=== PATIENT | female | born 1955 | race Two or more races ===

== ENCOUNTER 2025-01-04 09:55 | Emergency (ER) | payer OTHER, MEDICAID ==
[~2025-01-04] VITALS: Ht 160 cm; Wt 63.7 kg
--- NOTE | 2025-01-04 10:59 | ED.PDOC ---
History of Present Illness HPI Comments This is a 69-year-old female who comes in with chronic low back pain and sciatica. States she has had exacerbations for years last one was about three months ago. He normally she gets a Toradol shot and it makes a big difference. She tried gabapentin years ago but states it did not help so she stopped it. Denies any falls denies any incontinence any numbness or tingling but states pain is what is most unbearable. No urinary symptoms; Chief Complaint: Back Pain Time Seen by MD: 10:56 Reviewed Notes: Nurses Notes, Medications Allergies: Coded Allergies: NO KNOWN ALLERGIES (Unverified , 01/04/25) Information Source: Patient Mode of Arrival: Ambulatory Past Medical History PAST MEDICAL HISTORY: Denies Past Medical History (Other): Chronic low back pain Surgical History: Denies all surgeries Social History Smoker: Non-Smoker Alcohol: Denies ETOH Use Drugs: Denies Drug Use Lives In: Home Musculoskeletal: reports: back pain All Other Systems: Reviewed and Negative Physical Exam General Appearance: No Apparent Distress, Normal, Thin HEENT: Normal ENT Inspection, PERRL/EOMI, TMs Normal Neck: Non-Tender, Normal, Normal Inspection, Supple Respiratory: Inspiration, Lungs Clear, None, No Respiratory Distress, Normal Breath Sounds Cardiovascular: Regular Rate/Rhythm Breast Exam: Deferred Gastrointestinal: Non Tender, Normal Bowel Sounds, Soft Genitalia: Deferred Pelvic: Deferred Rectal: Deferred Extremities: Normal inspection, Normal range of motion, Other (Pain lumbar paraspinal muscles, with radiation to the right leg, gait is steady) Neurologic: Alert, Normal Affect, Normal Mood Cerebellar Function: NOT DONE Reflexes: Normal Skin: Dry, Warm Lymphatic: No Adenopathy Was a procedure done? Was a procedure done?: No Differential Dx Considerations may include: Shingles versus lumbar strain versus UTI X-Ray, Labs, Meds, VS Vital Signs Date Time Temp Pulse Resp B/P (MAP) Pulse Ox O2 Delivery O2 Flow Rate FiO2 01/04/25 09:57 97.8 82 16 163/80 97 97.8 Current Medications Medications (Trade) Dose Ordered Sig/Kirill Route Start Time Stop Time Status Last Admin Ketorolac Tromethamine (Toradol Injection) 60 mg ONCE ONCE IM 01/04/25 11:00 01/04/25 11:02 DC 01/04/25 11:23 X-Ray, Labs, Meds, VS Comment Patient seen and examined by me. Patient has a longstanding history of chronic low back pain and sciatica. She has tried gabapentin before without any success she usually comes in for a Toradol shot. She will be given Toradol 60 mg here.. Patient had improvement in symptoms with her Toradol shot. She will be sent home with some anti-inflammatories and a muscle relaxer. Instructed to follow up with her regular doctor regarding her chronic pain as well as alternate heat and ice which might help. Time of 1ST Reevaluation: 11:28 Reevaluation 1ST: Improved Patient Education/Counseling: Diagnosis, Treatment, Prognosis, Need For Follow Up Family Education/Counseling: No Family Present SEPSIS Sepsis Screen Date sepsis recognized/suspect: Jan 04, 2025 Time Sepsis recognized/suspect: 958 Recent Procedure: No On Antibiotic Therapy: No Respiratory Rate >20: No Heart Rate >90: No Temp<36 C (96.8 F) or >38.3 C: No SBP <90 or MAP <65 mmHG: No New Acute Mental Status Change: No Is the patient on CPAP, BIPAP,: No Vital Signs Date Time Temp Pulse Resp B/P (MAP) Pulse Ox O2 Delivery O2 Flow Rate FiO2 01/04/25 09:57 97.8 82 16 163/80 97 97.8 Medications Medications Dose Ordered Sig/Kirill Route Start Time Stop Time Status Last Admin Dose Admin Ketorolac Tromethamine 60 mg ONCE ONCE IM 01/04/25 11:00 01/04/25 11:02 DC 01/04/25 11:23 Departure 1 Departure Time of Disposition: :28 Impression: Primary Impression: Lumbar radiculopathy Additional Impression: Sciatic leg pain Disposition: 01 HOME / SELF CARE / HOMELESS Condition: Good Additional Instructions: Start the Motrin tomorrow as you have had already a strong anti-inflammatories today Consider using heat and ice as needed to also help with your pain Use the muscle relaxer at nighttime. Stretch as much as possible e-Prescriptions Cyclobenzaprine Hcl (CYCLOBENZAPRINE HCL) 7.5 Mg Tab 7.5 MG PO HSPRN PRN for 7 Days, #7 TAB Prov: DANIEL GRANT MANAGER COUNCIL 01/04/25 Ibuprofen Micronized (Ibuprofen) 600 Mg Tab 600 MG PO Q6HPRN PRN for 5 Days, #20 TAB Prov: DANIEL GRANT 01/04/25 Discharged With: Self Critical Care Note Critical Care Time?: No Stability Stability form required: No DANIEL GRANT Jan 04, 2025 10:59
[2025-01-04] MEDS: KETOROLAC TROMETH 60MG/2ML VIAL IM ONE (11:23)
[2025-01-04] MEDS ORDERED: CYCL-838 PO (11:30)
[2025-01-04] MEDS ORDERED: IBUP1TAB5 PO (11:30)
[2025-01-04 11:38] VITALS: BP 137/65; PULSE 62; RESP 18; TEMP 97.9; O2SAT 94
== END 2025-01-04 12:03 | disposition home or self-care (01) ==
LOC: ER 09:55
DX: M54.16 Radiculopathy, lumbar region (principal); M79.604 Pain in right leg; Z79.899 Other long term (current) drug therapy
CPT/HCPCS: 96372; 99283; J1885

== ENCOUNTER 2025-02-24 14:55 | Emergency (ER) | payer OTHER, MEDICAID ==
[~2025-02-24] VITALS: Ht 160 cm; Wt 62.2 kg
[~2025-02-24 14:55] MED LIST: CYCL-838 PO; IBUP1TAB5 PO
--- NOTE | 2025-02-24 15:43 | ED.PDOC ---
History of Present Illness HPI Comments 69-year-old female presents to the ER with a chief complaint of headache. Patient reports on having had a "knot" to the parietal region of the head associated with tenderness since this morning. Denies any other symptoms at this time. Denies chills, fever, N/V/D, SOB, CP. No other associated symptoms, modifiers, recent injuries or sick contacts present at this time. Chief Complaint: Headache Time Seen by MD: 15:30 Reviewed Notes: Nurses Notes, Medications, Allergies Allergies: Coded Allergies: NO KNOWN ALLERGIES (Unverified , 01/04/25) Home Meds Active Scripts Cephalexin (KEFLEX CAPSULE) 250 Mg Cp, 1 CAP PO QID, #28 CAP Prov:ALEX MARTELL MD 02/24/25 Cyclobenzaprine Hcl (CYCLOBENZAPRINE HCL) 7.5 Mg Tab, 7.5 MG PO HSPRN PRN for 7 Days, #7 TAB Prov:DANIEL GRANT SOFTWARE INTEGRATION DEVELOPER 01/04/25 Ibuprofen Micronized (Ibuprofen) 600 Mg Tab, 600 MG PO Q6HPRN PRN for 5 Days, #20 TAB Prov:DANIEL GRANT SOFTWARE INTEGRATION DEVELOPER 01/04/25 Information Source: Patient Mode of Arrival: Ambulatory Severity: Moderate Timing: Hours Duration: Since onset, Hours Prehospital treatment: None Past Medical History PAST MEDICAL HISTORY: Denies Surgical History: Denies all surgeries SOAP CHIPPER History: No Pertinent SOAP CHIPPER History Family History Family History: Reviewed,noncontributory to illness, Family hx of DM Social History Smoker: Non-Smoker Alcohol: Denies ETOH Use Drugs: Denies Drug Use Lives In: Home Constitutional: denies: chills, diaphoresis, fatigue, fever, malaise, sweats, weakness, others EENTM: denies: blurred vision, double vision, ear bleeding, ear discharge, ear drainage, ear pain, ear ringing, eye pain, eye redness, hearing loss, mouth pain, mouth swelling, nasal discharge, nose bleeding, nose congestion, nose pain, photophobia, tearing, throat pain, throat swelling, voice changes, others Respiratory: denies: cough, hemoptysis, orthopnea, SOB at rest, shortness of breath, SOB with excertion, stridor, wheezing, others Cardiovascular: denies: chest pain, dizzy spells, diaphoresis, Dyspnea on exertion, edema, irregular heart beat, left arm pain, lightheadedness, palpitations, PND, syncope, others Gastrointestinal: denies: abdomen distended, abdominal pain, blood streaked bowels, constipated, diarrhea, dysphagia, difficulty swallowing, hematemesis, melena, nausea, poor appetite, poor fluid intake, rectal bleeding, rectal pain, vomiting, others Genitourinary: denies: abnormal vagina bleeding, burning, dyspareunia, dysuria, flank pain, frequency, hematuria, incontinence, pain, , vagina discharge, urgency, others Neurological: denies: dizziness, fainting, headache, left sided numbness, left sided weakness, numbness, paresthesia, pre-existing deficit, right sided numbness, right sided weakness, seizure, speech problems, tingling, tremors, weakness, others Musculoskeletal: reports: others (Tenderness to the parietal region of the head); denies: back pain, gout, joint pain, joint swelling, muscle pain, muscle stiffness, neck pain Integumetry: denies: bruises, change in color, change in hair/nails, dryness, laceration, lesions, lumps, rash, wounds, others Allergic/Immunocompromised: denies: Difficulty Healing, Frequent Infections, Hives, Itching, others Hematologic/Lymphatic: denies: anemia, blood clots, easy bleeding, easy bruising, swollen glands, others Endocrine: denies: excessive hunger, excessive sweating, excessive thirst, excessive urination, flushing, intolerance to cold, intolerance to heat, unexplained weight gain, unexplained weight loss, others Psychiatric: denies: anxiety, bipolar disorder, depression, hopeless, panic disorder, schizophrenia, sleepless, suicidal, others All Other Systems: Reviewed and Negative Physical Exam General Appearance: No Apparent Distress HEENT: Normal ENT Inspection, Pharynx Normal, TMs Normal Neck: Full Range of Motion, Non-Tender, Normal, Normal Inspection Respiratory: Chest Non-Tender, Lungs Clear, No Accessory Muscle Use, No Respiratory Distress, Normal Breath Sounds Cardiovascular: No Edema, No JVD, No Murmur, No Gallop, Normal Peripheral Pulses, Regular Rate/Rhythm Breast Exam: Deferred Gastrointestinal: No Organomegaly, Non Tender, No Pulsatile Mass, Normal Bowel Sounds, Soft Genitalia: Deferred Pelvic: Deferred Rectal: Deferred Extremities: No calf tenderness, Normal capillary refill, Normal inspection, Normal range of motion, Non-tender, No pedal edema Musculoskeletal : Apperance: Normal Neurologic: Alert, mold yard supervisor II-XII nml as Tested, No Motor Deficits, Normal Affect, Normal Mood, No Sensory Deficits Cerebellar Function: Normal Reflexes: Normal Skin: Dry, Normal Color, Warm, Other (Mild tenderness to the occipital region that has somewhat consistent with cellulitis) Lymphatic: No Adenopathy Was a procedure done? Was a procedure done?: No Differential Dx Considerations may include: Cellulitis, abscess X-Ray, Labs, Meds, VS Vital Signs Date Time Temp Pulse Resp B/P (MAP) Pulse Ox O2 Delivery O2 Flow Rate FiO2 02/24/25 16:22 98.6 66 18 148/93 (111) 99 98.6 02/24/25 14:59 98.6 75 18 163/86 95 98.6 Time of 1ST Reevaluation: 16:00 Reevaluation 1ST: Unchanged Patient Education/Counseling: Diagnosis, Treatment, Prognosis, Need For Follow Up Family Education/Counseling: No Family Present SEPSIS Sepsis Screen Date sepsis recognized/suspect: Feb 24, 2025 Time Sepsis recognized/suspect: 1502 Recent Procedure: No On Antibiotic Therapy: No Respiratory Rate >20: No Heart Rate >90: No Temp<36 C (96.8 F) or >38.3 C: No SBP <90 or MAP <65 mmHG: No New Acute Mental Status Change: No Is the patient on CPAP, BIPAP,: No Physician Orders Head Without Contrast (02/24/25 15:35) Vital Signs Date Time Temp Pulse Resp B/P (MAP) Pulse Ox O2 Delivery O2 Flow Rate FiO2 02/24/25 16:22 98.6 66 18 148/93 (111) 99 98.6 02/24/25 14:59 98.6 75 18 163/86 95 98.6 Departure 1 Departure Time of Disposition: 16:47 Impression: Primary Impression: Cellulitis of scalp Disposition: HOME / SELF CARE / HOMELESS Condition: Fair e-Prescriptions Cephalexin (KEFLEX CAPSULE) 250 Mg Cp 1 CAP PO QID, #28 CAP Prov: ALEX MARTELL MD 02/24/25 Discharged With: Self Critical Care Note Critical Care Time?: No Stability Stability form required: No Heart Score Heart Score: Heart Score Response (Comments) Value History N/A 0 EKG N/A 0 Age N/A 0 Risk Factors N/A 0 Troponin N/A 0 Total 0 I personally scribed for ALEX MARTELL MD ([email or web address]) on 02/24/25 at 15:43. Electronically submitted by Gerald Oliver ([email or web address]). ALEX MARTELL MD Feb 24, 2025 15:43
--- NOTE | 2025-02-24 16:19 | DVH ---
EXAM: CT HEAD WITHOUT CONTRAST INDICATION: HERNANDEZ TECHNIQUE: CT of the head without intravenous contrast. Radiation Dose Information: CT Dose: CTDI volume is 52 mGy. Dose-length product is 925 mGy*cm The dose indicators for CT are the volume Computed Tomography (CT) Dose Index (CTDIvol) and the Dose Length Product (DLP), and are measured in units of mGy and mGy-cm, respectively. These indicators are not patient dose, but values generated from the CT scanner acquisition factors. The report includes radiation exposure data for exposures received during this examination. COMPARISON: None FINDINGS: There is no evidence of acute intracranial hemorrhage, extra-axial collection, mass effect, midline shift, herniation or hydrocephalus. The ventricles, sulci and cisterns are age appropriate. The rob-white differentiation is intact. Patchy periventricular and subcortical white matter hypoattenuation is nonspecific but may be related to small vessel ischemic disease. The visualized paranasal sinuses and mastoid air cells are clear. The surrounding soft tissues and osseous structures are unremarkable. IMPRESSION: 1. No acute intracranial abnormality.
[2025-02-24 16:22] VITALS: BP 148/93; PULSE 66; RESP 18; TEMP 98.6; O2SAT 99
[2025-02-24] MEDS ORDERED: CEPH250C PO (16:40)
== END 2025-02-24 16:59 | disposition home or self-care (01) ==
LOC: ER 14:55
DX: L03.811 Cellulitis of head [any part, except face] (principal); Z79.899 Other long term (current) drug therapy
CPT/HCPCS: 70450